=== PATIENT | female | born 1995 | race Caucasian/White ===

== ENCOUNTER 2017-10-06 09:16 | Inpatient (IN) ==
[2017-10-06] MEDS ORDERED: Metoclopramide 10 MG/2 ML VIAL IVP PRN (10:08)
[2017-10-06] MEDS ORDERED: Lidocaine 1% 20 ML MDV INFILT PRN (10:08)
[2017-10-06] MEDS ORDERED: *HR* Nalbuphine 20 MG/ML AMPUL IVP PRN (10:08)
[2017-10-06] MEDS ORDERED: Ondansetron 4 MG/2 ML VIAL IVP PRN (10:08)
[2017-10-06] MEDS ORDERED: Naloxone 0.4 MG/ML INJ IVP PRN (10:08)
[2017-10-06] MEDS ORDERED: Famotidine 20 MG/2 ML VIAL IVP PRN (10:08)
[2017-10-06] MEDS ORDERED: D5% in Lactated Ringers 1,000 ML IVC SCH (10:15)
--- NOTE | 2017-10-06 10:28 | OB/GYN History & Physical ---
Date of Encounter: 10/06/17 Time of Encounter: 10:23 Assessment and Plan (1) 40 weeks gestation of Current visit: Yes Status: Acute (2) Elevated blood pressure affecting in third trimester, antepartum Current visit: Yes Status: Acute PIH labs pending. BP 120/90 here. Admit for IOL. Plan for mccauley induction. Pt has a plan and would prefer to avoid an epidural. Clear liquids. Intermittent monitoring. Anticipate . History of Present Illness Chief complaint: elevated blood pressure, 40 weeks gestation HPI: Ms. Villalobos is a 22 year old female presenting at 40 weeks 2 days by 8 week ultrasound for induction of labor due to elevated blood pressure and proteinuria in office today. She denies complaints at this time. Good FM. This has been uncomplicated until today. EFW 2996g on ultrasound today. BPP 8/8 in office. Blood type O positive Rubella non-immune HIV negative Hep B negative RPR negative Elevated glucola with normal 3 hour GTT GBS negative Past Med Surg Social Fam HX - Past Medical History Source: patient Medical history: no medical history - Past Surgical History Surgical History: no surgical history - Social History Smoking Status: Never smoker Smokeless Tobacco Status: No Alcohol use: none Drug use: none Obstetrical History - Pregnancies : 1 Medications and Allergies Tablet 1 PO DAILY 10/06/17 [History] 3 Allergy/AdvReac Type Severity Reaction Status Date / Time No Known Allergies Allergy Verified 10/06/17 09:46 Review of System OB All systems PM: reviewed and no additional remarkable complaints except as stated Exam - Constitutional Constitutional: well developed, well nourished, no acute distress, average body habitus - HEENT HEENT: Mucus Membranes Moist - Lungs Respiratory exam: CTAB - Cardiovascular Cardiovascular exam: RRR - Abdomen Abdomen: Present: gravid, non tender - Extremities Extremities exam: normal inspection Deep Tendon Reflex Grade: 2+ Normal - Vulva Vulva: bilateral: normal - Vagina Vagina: Present: normal moisture - Cervix Dilation: 1 Effacement: 80 Station: -2 - Uterus Uterus exam: Present: normal size Results All other labs normal. - VTE Reasons for not Prescribing Prophylaxis: Treatment not Indicated - Low risk for VTE
--- NOTE | 2017-10-06 11:23 | OB Labor Progress Note ---
Date of Encounter: 10/06/17 Time of Encounter: 11:21 Labor Progress Note - Subjective Subjective: Pt denies complaints at this time. - Cervix Cervix: /-2 - Heart Tones Heart Tones: Category I - Interventions Interventions: Burk balloon placed in cervix using sterile technique. Balloon inflated with 50ml sterile water. Burk taped with gentle tension. Pt tolerated well. - Plan Plan: Intermittent monitoring. Allow to to pump breasts to start contractions. Anticipate .
[2017-10-06 11:33] LABS: Basophils % 0.4 %; Eosinophils # 0.1 K/mcL (0.0-0.6); Eosinophils % 0.5 %; Hematocrit 39.1 % (35.3-44.9); Hemoglobin 13.2 g/dL (11.5-15.4); Immature Granulocytes % 1.2 % (0-4); Lymphocytes # 1.6 K/mcL (0.6-4.6); Lymphocytes % 14.8 %; Mean Corpuscular HGB Conc 33.8 g/dL (31.6-35.5); Mean Corpuscular Hemoglobin 29.6 pg (28.0-33.3); Mean Corpuscular Volume 87.7 fL (83.0-100.0); Mean Platelet Volume 9.2 fL (9.4-12.4); Monocytes # 0.6 K/mcL (0.0-1.3); Monocytes % 5.7 %; Neutrophils # 8.5 K/mcL (1.6-8.9); Platelet Count 240 K/mcL (140-400); Red Blood Count 4.46 M/mcL (3.82-4.97); Red Cell Distribution Width 13.4 % (11.5-14.5); Segmented Neutrophils % 77.4 %
[2017-10-06 11:43] LABS: Alanine Aminotransferase 12 Units/L (7-52); Aspartate Amino Transferase 14 Units/L (13-39); BUN/Creatinine Ratio 18 (6-26); Blood Urea Nitrogen 11 mg/dL (6-20); Lactate Dehydrogenase 116 Units/L (140-271); Uric Acid 4.5 mg/dL (2.3-7.6); eGFR For African Americans > 60 (> 60); eGFR For Non-African Americans > 60 (> 60)
[2017-10-06 12:21] LABS: Amphetamine Screen,Urine Negative ng/mL (Cutoff=1000); Barbiturate Screen,Urine Negative ng/mL (Cutoff=200); Benzodiazepines Screen,Urine Negative ng/mL (Cutoff=200); Cannabinoid Screen,Urine Negative ng/mL (Cutoff = 50); Cocaine Screen,Urine Negative ng/mL (Cutoff= 300); Opiate Screen,Urine Negative ng/mL (Cutoff=300); Phencyclidine Screen,Urine Negative ng/mL (Cutoff=25)
[2017-10-06 13:05] LABS: Protein/Creatinine Ratio,Urine 0.29 mg/mg (0.00-0.20)
--- NOTE | 2017-10-06 14:28 | OB Labor Progress Note ---
Date of Encounter: 10/06/17 Time of Encounter: 14:25 Labor Progress Note - Subjective Subjective: Pt reports increasing pain with contractions. - Cervix Cervix: 5/80/-1 - Heart Tones Heart Tones: Category I - [place]: 2-4 minutes - Interventions Interventions: Burk out AROM for small amount clear fluid - Plan Plan: Continue intermittent monitoring. Allow pt to ambulate and use birthing ball as desired. Anticipate .
--- NOTE | 2017-10-06 17:56 | OB Labor Progress Note ---
Date of Encounter: 10/06/17 Time of Encounter: 17:54 Labor Progress Note - Subjective Subjective: Pt reports increasing pain with contractions. - Cervix Cervix: 5/80/-1 - Heart Tones Heart Tones: Intermittent FHT reassuring - [place]: 2-4 minutes - Plan Plan: COntinue intermittent monitoring. Anticipate .
--- NOTE | 2017-10-06 20:16 | OB Labor Progress Note ---
Date of Encounter: 10/06/17 Time of Encounter: 20:12 Labor Progress Note - Subjective Subjective: Pt reports severe pain with contractions and is requesting an epidural. - Cervix Cervix: 5/90/-1 - Heart Tones Heart Tones: Category I - Plan Plan: Epidural as soon as possible. Will augment with Pitocin after epidural as needed.
[2017-10-06] MEDS ORDERED: Ringers Solution, Lactated 1,000 ML ONE ×3 (20:20→23:45)
[2017-10-06] MEDS ORDERED: Epidural Premix (fent/bupiv) 110 ML EP SCH (20:30)
[2017-10-06] MEDS ORDERED: Epidural Premix (fent/bupiv) 110 ML EP ONE (20:54)
--- NOTE | 2017-10-06 21:42 | Anesthesia Evaluation PreOp ---
Date of Encounter: 10/06/17 Time of Encounter: 21:00 - Past History Planned Operation: lupe Cardiac History: Denies any Significant Hx Pulmonary History: Denies Any Significant HX PROCUREMENT OFFICER History: Denies Any Significant HX Other Medical History: Denies Any Significant HX Anesthesia History: No Prior Anesthetic Complications : Yes Test: Positive Alcohol Use: none Drug use: none Medications and Allergies Tablet 1 PO DAILY 10/06/17 [History] 3 Allergy/AdvReac Type Severity Reaction Status Date / Time No Known Allergies Allergy Verified 10/06/17 09:46 - Meds/Allergy Pre-op Review Medications Reviewed: Yes Allergies Reviewed: Yes Beta Blockers on Current Med List: No Anesthesia Results - Labs 10/06/17 10:41 10/06/17 10:41 Anesthesia Exam - HEENT Pupil (Motor): Pupils equal Mallampati: II Teeth: Normal Oral Opening: Greater than 3 - PROCUREMENT OFFICER LOC: Oriented PROCUREMENT OFFICER Motor: Normal RUE, Normal LUE, Normal RLE, Normal LLE, Normal Face PROCUREMENT OFFICER Sensory: Normal: RUE, LUE, RLE, LLE, Face - Cardiac Rhythm: Regular Murmur: None JVD: No Carotid Bruit: No - Pulmonary Breath Sounds: bilateral Clear Respiratory Effort: Symmetrical Anesthesia Assess/Plan ASA Score: 1, 2 Modified Arcelia Scale for Level of Consciousness: Cooperative, oriented, and tranquil Anesthetic Plan: Regional Autologous Blood: No Monitoring Plan: Standard Monitors
--- NOTE | 2017-10-06 21:43 | Anesthesia Procedures ---
Date of Encounter: 10/06/17 Time of Encounter: 21:00 Procedures: Anesthesia - Epidural/Spinal Patient ID/Chart reviewed: Yes Patient examined: Yes OB Eval: Gestational age: 40.2 OB Eval: : 1 OB Eval: Hx Para: 0 OB Eval: Contractions: Non-stressed pattern Consent Obtained: Yes Supplemental Oxygen: None/Room Air Site Prep: Aseptic Technique, Sterile prep and drape, Povidone-Iodine 1% Patient position: upright Amount of Local Anesthetic used: 3 Touhy Needle Gauge: 18 Touhy Needle Depth (cm): 5 Catheter Depth at Skin (cm): 8 Test Dose (1.5% Lido + Epi): Volume given (mls): 3 Test Dose Result: Negative Infusion Rate (mls/hr): [address]: Tegaderm, Tape Interspace Used: L4-L5 Loss of Resistance (FRAN): Yes Blood: No CSF: No Paresthesia: No
[2017-10-06] MEDS ORDERED: Oxytocin 20 units/ LR 1000 mL 20 UNIT/1,000 ML BAG IVC SCH (21:45)
[2017-10-07] MEDS ORDERED: Epidural Premix (fent/bupiv) 110 ML EP ONE (00:04)
--- NOTE | 2017-10-07 03:17 | OB/GYN Procedure Note ---
Delivery - Delivery Date: 10/07/17 Provider: Giulia Hernandez Intrapartum events: none Delivery induction: mccauley Delivery augmentation: rupture of membranes, pitocin Delivery monitor: external FHT, external uterine Anesthesia: epidural Estimated Blood Loss: 150 - (s) A Delivery Date: 10/07/17 Delivery Time: 02:38 Presentation: vertex Position: LUKAS Route of delivery: Gender: Female Viability: Viable Pounds: 6 Ounces: 0 Weight Gram: 2.73 kg at 1 minute: 8 at 5 mins: 9 Shoulder Dystocia: not encountered Specimens collected: cord blood Placenta: spontaneous Cord: 3 umbilical vessels, other (short cord) - Repair Episiotomy: none Laceration Description: Periurethral, Perineal - 1st Degree, Labial (left) - Complications Delivery complications: none Delivery comments: Pt pushed effectively to for viable female "Donna" weighing 6lbs with apgars 8 at one minute and 9 at five minutes. After a 2 minute delay the cord was clamped and cut and the placenta delivered spontaneous and intact. Baby was then placed on the maternal abdomen. A first degree perineal laceration and a periurethral laceration were repaired with 2-0 monocryl. A left labial laceration was repaired with 4-0 Vicryl. EBL 150ml. Mother and baby stable in DR following procedure. - Disposition Mom disposition: stable in LDR disposition: stable in LDR
[2017-10-07] MEDS ORDERED: Lanolin 7 G OINT...G. TP PRN (03:37)
[2017-10-07] MEDS ORDERED: Acetaminophen 325 MG TABLET PO PRN (03:37)
[2017-10-07] MEDS ORDERED: Oxytocin 20 units/ LR 1000 mL 20 UNIT/1,000 ML BAG IVC SCH (03:37)
[2017-10-07] MEDS ORDERED: Measles/Mumps/Rubella Vacc 0.5 ML VIAL SQ PRN (03:37)
[2017-10-07] MEDS: Prenatal Vit/FA 1 EACH TABLET PO SCH (09:16)
[2017-10-07] MEDS: Ibuprofen 600 MG TABLET PO PRN ×2 (15:35→20:38)
[2017-10-07] MEDS: Benzocaine/Menthol 56 GM AEROSOL SPRAY TP PRN (20:39)
[2017-10-08] MEDS: Ibuprofen 600 MG TABLET PO PRN (03:10)
[2017-10-08 08:10] VITALS: BP 113/75
[2017-10-08] MEDS: Prenatal Vit/FA 1 EACH TABLET PO SCH (09:27)
--- NOTE | 2017-10-08 12:23 | Discharge Summary ---
Date of Encounter: 10/08/17 Time of Encounter: 12:19 - Discharge Diagnosis (1) Vaginal delivery Priority: Primary Status: Acute Comments: Pain well-managed on oral pain medication, tolerating by mouth diet, breast- feeding, minimal lochia, desires discharge - Discharge Medications Prescriptions: Ibuprofen [Motrin] 600 mg PO Q6HR PRN #60 tablet PRN Reason: Cramping Docusate [Colace] 100 mg PO BID #60 capsule Home Medications: Acetaminophen [Tylenol] 650 mg PO Q6HR PRN tablet 10/08/17 [Rx] Benzocaine/Menthol Bath [Dermoplast Bath] 1 appl TP QID PRN aerosol 10/08/17 [Rx] Docusate [Colace] 100 mg PO BID #60 capsule 10/08/17 [Rx] Ibuprofen [Motrin] 600 mg PO Q6HR PRN #60 tablet 10/08/17 [Rx] Lanolin [Lansinoh] 1 appl TP Q4HR PRN oint...g. 10/08/17 [Rx] Vit/FA 1 each PO DAILY tablet 10/08/17 [Rx] Allergies/Adverse Reactions: 3 Allergy/AdvReac Type Severity Reaction Status Date / Time No Known Allergies Allergy Verified 10/06/17 09:46 Data Procedures and tests throughout hospitalization: Laboratory Tests 10/06/17 10/06/17 10/06/17 10:41 10:41 10:41 WBC 11.0 RBC 4.46 Hgb 13.2 Hct 39.1 MCV 87.7 MCH 29.6 MCHC 33.8 RDW 13.4 Plt Count 240 MPV 9.2 L Immature Gran % 1.2 Seg Neutrophils % 77.4 Lymphocytes % 14.8 Monocytes % 5.7 Eosinophils % 0.5 Basophils % 0.4 Neutrophils # 8.5 Lymphocytes # 1.6 Monocytes # 0.6 Eosinophils # 0.1 Basophils # 0.0 BUN 11 Creatinine 0.62 Est GFR ( Amer) > 60 Est GFR (Non-Af Amer) > 60 BUN/Creatinine Ratio 18 Uric Acid 4.5 AST 14 ALT 12 Lactate Dehydrogenase 116 L Urine Creatinine 38 Protein/Creatinin Ratio 0.29 H Urine Total Protein 11 Urine Opiates Screen Ur Barbiturates Screen Ur Phencyclidine Scrn Ur Amphetamines Screen U Benzodiazepines Scrn Urine Cocaine Screen U Marijuana (THC) Screen 10/06/17 10:41 WBC RBC Hgb Hct MCV MCH MCHC RDW Plt Count MPV Immature Gran % Seg Neutrophils % Lymphocytes % Monocytes % Eosinophils % Basophils % Neutrophils # Lymphocytes # Monocytes # Eosinophils # Basophils # BUN Creatinine Est GFR ( Amer) Est GFR (Non-Af Amer) BUN/Creatinine Ratio Uric Acid AST ALT Lactate Dehydrogenase Urine Creatinine Protein/Creatinin Ratio Urine Total Protein Urine Opiates Screen Negative Ur Barbiturates Screen Negative Ur Phencyclidine Scrn Negative Ur Amphetamines Screen Negative U Benzodiazepines Scrn Negative Urine Cocaine Screen Negative U Marijuana (THC) Screen Negative Date of admission: 10/06/17 09:16 Primary care physician: PCP NONE Consults: 10/07/17 03:37 Consult to Musical Performer [CONS] Routine Comment: Vaginal delivery, consult needed Discharging clinician: Ania Mcdaniels Anticipated date of discharge: 10/08/17 - Patient Status Disposition: Home, Self-Care Condition: Good Functional capacity at discharge: independent ambulation Overall status at discharge: patient is back to baseline - Discharge Instructions Follow Up With: NONE,PCP [Primary Care Provider] - - Diet and Activity Activity: resume usual activities as tolerated Diet: regular diet Hospital Course Reason for admission: active labor Delivery: Episiotomy: none Laceration: 1st degree, other (Periurethral) Other procedures: none complications: none Discharge diagnosis: IUP at term delivered [place] baby: female Hospital course: Delivery - Delivery Date: 10/07/17 Provider: Giulia Hernandez Intrapartum events: none Delivery induction: mccauley Delivery augmentation: rupture of membranes, pitocin Delivery monitor: external FHT, external uterine Anesthesia: epidural Estimated Blood Loss: 150 - (s) Infant A Infant Delivery Date: 10/07/17 Infant Delivery Time: 02:38 Presentation: vertex Position: LUKAS Route of delivery: Gender: Female Viability: Viable Pounds: 6 Ounces: 0 Weight Gram: 2.73 kg at 1 minute: 8 at 5 mins: 9 Shoulder Dystocia: not encountered Specimens collected: cord blood Placenta: spontaneous Cord: 3 umbilical vessels, other (short cord) - Repair Episiotomy: none Laceration Description: Periurethral, Perineal - 1st Degree, Labial (left) - Complications Delivery complications: none Delivery comments: Pt pushed effectively to for viable female "Donna" weighing 6lbs with apgars 8 at one minute and 9 at five minutes. After a 2 minute delay the cord was clamped and cut and the placenta delivered spontaneous and intact. Baby was then placed on the maternal abdomen. A first degree perineal laceration and a periurethral laceration were repaired with 2-0 monocryl. A left labial laceration was repaired with 4-0 Vicryl. EBL 150ml. Mother and baby stable in DR following procedure. - Disposition Mom disposition: stable in PP and appropriate for discharge. Time Attestation: Total time spent providing and/or coordinating discharge services: Exam - Constitutional Vitals: Temp Pulse Resp BP Pulse Ox 97.5 F L 76 16 113/75 97 10/08/17 07:50 10/08/17 07:50 10/08/17 07:50 10/08/17 07:50 10/08/17 07:50 General appearance IM: A&O X 3 - Respiratory Respiratory exam: Present: CTAB - Cardiovascular Cardiovascular exam IM: Present: RRR - GI/Abdominal GI/Abdominal exam IM: normal bowel sounds, soft - Uterine Tone: Firm Uterus Position: At Umbilicus - Extremities Exam Extremities exam IM: Present: normal capillary refill, normal inspection - Neurological Exam Neurological exam: normal gait, oriented X3 - Psychiatric Additional comments: Reports good mood
[2017-10-08] MEDS: Benzocaine/Menthol 56 GM AEROSOL SPRAY TP PRN (12:39)
== END 2017-10-08 13:49 | disposition home or self-care (01) | DRG 775 ==
LOC: 1NENULAB 09:16 → 1NENUOBS 10-07 05:20
PROVIDERS: ADMIT Obstetrics & Gynecology; ATTEND Obstetrics & Gynecology

== ENCOUNTER 2020-02-20 22:52 | Inpatient (IN) ==
[~2020-02-20 22:52] MED LIST: *HR* FentaNYL (PF) 100 MCG/2 ML VIAL IVP PRN; Azithromycin 500 MG in 0.9 % Sodium Chloride 250 ML IVPB ONE; Famotidine 20 MG/2 ML VIAL IVP PRN; Lidocaine 1% 20 ML MDV INFILT PRN; Metoclopramide 10 MG/2 ML VIAL IVP PRN; Naloxone 0.4 MG/ML INJ IVP PRN; Ondansetron 4 MG/2 ML VIAL IVP PRN
[2020-02-20] MEDS ORDERED: Ringers Solution, Lactated 1,000 ML IVC SCH (23:00)
[2020-02-20] MEDS ORDERED: EPHEDrine 50 MG/ML VIAL IVP PRN (23:17)
[2020-02-20] MEDS ORDERED: *HR* FentaNYL (PF) 100 MCG/2 ML VIAL EP ONE (23:17)
[2020-02-20] MEDS ORDERED: Ropivacaine/PF 0.2% 20 ML VIAL EP ONE (23:17)
[2020-02-20] MEDS ORDERED: *HR* FentaNYL (PF) 100 MCG/2 ML VIAL ONE (23:23)
[2020-02-20] MEDS ORDERED: Ropivacaine/PF 0.2% 20 ML VIAL ONE (23:23)
[2020-02-20 23:30] LABS: Amphetamine Screen,Urine Negative ng/mL (Cutoff=1000); Barbiturate Screen,Urine Negative ng/mL (Cutoff=200); Benzodiazepines Screen,Urine Negative ng/mL (Cutoff=200); Cannabinoid Screen,Urine Negative ng/mL (Cutoff = 50); Cocaine Screen,Urine Negative ng/mL (Cutoff= 300); Opiate Screen,Urine Negative ng/mL (Cutoff=300); Phencyclidine Screen,Urine Negative ng/mL (Cutoff=25)
[2020-02-20] MEDS ORDERED: Epidural Premix (fent/bupiv) 110 ML EP SCH (23:30)
[2020-02-20 23:35] LABS: Basophils % 0.3 %; Eosinophils # 0.1 K/mcL (0.0-0.6); Eosinophils % 0.4 %; Hematocrit 40.5 % (35.3-44.9); Hemoglobin 13.8 g/dL (11.5-15.4); Lymphocytes # 2.1 K/mcL (0.6-4.6); Mean Corpuscular HGB Conc 34.1 g/dL (31.6-35.5); Mean Corpuscular Hemoglobin 30.1 pg (28.0-33.3); Mean Corpuscular Volume 88.2 fL (83.0-100.0); Monocytes # 0.6 K/mcL (0.0-1.3); Monocytes % 5.6 %; Neutrophils # 8.6 K/mcL (1.6-8.9); Platelet Count 236 K/mcL (140-400); Red Blood Count 4.59 M/mcL (3.82-4.97); Red Cell Distribution Width 13.2 % (11.5-14.5); Segmented Neutrophils % 74.7 %; White Blood Count 11.5 K/mcL (4.3-11.1)
[2020-02-21] MEDS ORDERED: Oxytocin 20 units/ LR 1000 mL 20 UNIT/1,000 ML BAG IVC ONE (00:28)
[2020-02-21] MEDS ORDERED: Acetaminophen 325 MG TABLET PO PRN (01:19)
[2020-02-21] MEDS ORDERED: Benzocaine/Menthol 56 GM AEROSOL SPRAY TP PRN (01:19)
[2020-02-21] MEDS ORDERED: Oxytocin 20 units/ LR 1000 mL 20 UNIT/1,000 ML BAG IVC SCH (01:19)
[2020-02-21] MEDS ORDERED: Lanolin 7 G OINT...G. TP PRN ×2 (01:19→01:25)
[2020-02-21] MEDS: Ibuprofen 600 MG TABLET PO PRN ×2 (08:03→16:46)
[2020-02-21] MEDS: Prenatal Vit/FA 1 EACH TABLET PO SCH (08:03)
[2020-02-22] MEDS: Ibuprofen 600 MG TABLET PO PRN (03:28)
[2020-02-22] MEDS: Prenatal Vit/FA 1 EACH TABLET PO SCH (07:24)
[2020-02-22 07:44] VITALS: BP 109/71
== END 2020-02-22 11:50 | disposition home or self-care (01) | DRG 807 ==
LOC: 1NENULAB → 1NENUOBS 02-21 03:02
PROVIDERS: ADMIT Obstetrics & Gynecology; ATTEND Obstetrics & Gynecology